=== PATIENT | female | born 1980 | race Hispanic/Latino ===

== ENCOUNTER 2016-12-23 08:48 | Emergency (ER) | payer OTHER ==
[~2016-12-23] VITALS: Ht 168.9 cm; Wt 95.5 kg
[~2016-12-23 08:48] MED LIST: CITA10TA9 PO; OMEP20CA11 PO; PREN1TAB69 PO; SULF1TAB7 PO
[2016-12-23 08:49] VITALS: BP 134/77; PULSE 92; RESP 15; O2SAT 98
--- NOTE | 2016-12-23 09:02 | ED.REPORT ---
HPI-Extremity Problem Lower Date of Service Dec 23, 2016 ED Provider: Moiz Chin Patient is a 36 year old female who presents to the ED complaining of R ankle pain s/p slipping in mud and falling last night. Associated symptoms include R ankle swelling and trouble walking. She denies numbness, leg pain, or any other symptoms. Nursing Notes Stated Complaint: RIGHT FOOT INJURY/PAIN Chief Complaint: Extremity Trauma Nursing Notes Reviewed: Yes Allergies: Coded Allergies: No Known Allergies (Unverified Allergy, Unknown, 12/23/16) Scheduled Citalopram (Citalopram) 10 Mg Tablet 10 MG PO DAILY Omeprazole (Omeprazole) 20 Mg Capsule.dr 20 MG PO DAILY TAKES EVERY OTHER DAY Vit/Fe Fumarate/Fa-Expunged Drug, Do (-Expunged Drug, Do Not Renew!) 1 Each Tablet 1 EACH PO 1-2XD Sulfamethoxazole/Trimeth 800-160 mg (Bactrim DS) 1 Each Tablet 1 EACH PO BID Scheduled PRN Naproxen (Naproxen) 500 Mg Tab 500 MG PO BID PRN PRN For Pain General Time Seen by MD: 09:02 Chief Complaint Ankle injury right Hx Obtained From: Patient Arrived By: Walk-in Onset Occurred: Yesterday Symptom Duration: Since onset Caused by: Fall on ground Past Medical History Past Medical History Healthy Past Surgical History Reports: Cholecystectomy Smoking History Current Every Day Smoker Social History Alcohol Use: "Social" Other Social History: Lives with children Review of Systems Musculoskeletal: Reports: Joint pain (R ankle ), Joint swelling (R ankle ), Denies: Extremity pain Neurologic: Reports: Problem walking, Denies: Headache, Numbness Complete sys rev & neg: except as marked. Physical Exam Initial Vital Signs Vital Signs (First) Date Time Temp Pulse Resp B/P Pulse Ox O2 Delivery O2 Flow Rate FiO2 12/23/16 08:49 36 92 15 134/77 98 Room Air Initial VS: Reviewed General/Constitutional: Well-developed, Well-nourished Head / Eyes: Atraumatic, Normocephalic Neck: Full range of motion Respiratory: No respiratory distress Cardiovascular: Intact distal pulses Skin: Warm, Dry Neurologic: Alert, Oriented, Nonfocal Psychiatric: Mood/affect normal, Behavior normal, Normal thought content Lower Extremity / Pelvis / MS: Atraumatic Ankle / Foot: Neurologic intact, Vascular intact tender lateral malleolus on right with swelling and ecchymosis no pain at proximal fibula 2+ dorsalis pedis pulse Interpretation & Diagnostics X-Ray Interpretation Xray Interpretation: No fracture X-Ray Ordered: Ankle right Interpretation / Wet Read by: Interpret - ED physician Interpretation: Normal exam Re-Eval/Medical Decision Med Decision/Clinical Course Patient had an inversion injury to the ankle with lateral malleolar tenderness she has a miniscule avulsion tip injury likely related to minor tender avulsion, we will treat as a sprain with a splint and crutches. Recommend nonweightbearing. Naproxen prescribed. Follow-up with orthopedics her PCP recommended. Return precautions given. Re-Evaluation/Progress : Time of Eval: 09:40 Re-Evaluation/Progress Note: Discussed plan for discharge. Patient understands and agrees with plan. All questions addressed at this time. Counseled Regarding: Diagnosis, Lab results, Need for follow-up, When/why to return to ED Discharge & Departure Impression: Primary Impression: Ankle sprain Disposition: Home Patient Instructions: Ankle Sprain (ED) Additional Instructions: We are so sorry that you hurt your ankle. You have an ankle sprain. Use the splint and crutches provided. Do not put weight on your ankle. Follow-up with either your primary care doctor or orthopedics in 1-2 weeks for repeat evaluation. Take naproxen for pain. Use ice packs. Return to the ER as needed for any concerning or worsening symptoms. Referrals: [facility] Scribe Attestation Portions of this note were transcribed by Paulette Streeter. I, Dr. Chin personally performed the history, physical exam and medical decision-making; I reviewed and confirmed the accuracy of the information in the transcribed note. Signed by: Paulette Streeter 12/23/16, 1002 copies to: [facility] Moiz Chin DO Dec 23, 2016 09:[address] Dec 23, 2016 09:13
[2016-12-23] MEDS ORDERED: NPR500T PO (09:41)
--- NOTE | 2016-12-23 11:42 | DRSVH ---
PROCEDURE: X-RAY RIGHT ANKLE, MINIMUM THREE VIEWS ([id number]) INDICATIONS: lateral malleolar pain, post fall TECHNIQUE: 3 views of the ankle were acquired. COMPARISON: None. FINDINGS: Bones: There is likely a small avulsion fracture off the distal aspect of the lateral malleolus. Soft tissues: There is mild lateral malleolar soft tissue swelling. No tibiotalar joint effusion. A chilles tendon appears normal. IMPRESSION: Probable small lateral malleolar avulsion fracture and lateral malleolar soft tissue swel ling. Dictated by: Tatyana Mercer M.D. on 12/23/2016 at 11:39 Approved by: Tatyana Mercer M.D. on 12/23/2016 at 11:40
== END 2016-12-23 09:56 | disposition home or self-care (01) ==
LOC: SED 08:48
DX: S93.401A Sprain of unspecified ligament of right ankle, initial encounter (principal); W01.0XXA Fall on same level from slipping, tripping and stumbling without subsequent striking against object, initial encounter; Y93.01 Activity, walking, marching and hiking; Y99.8 Other external cause status; Y92.019 Unspecified place in single-family (private) house as the place of occurrence of the external cause; F17.200 Nicotine dependence, unspecified, uncomplicated